=== PATIENT | male | born 1945 | race Caucasian/White ===

== ENCOUNTER 2022-04-21 14:07 | Inpatient (IN) | payer OTHER ==
[~2022-04-21] VITALS: Ht 170.2 cm; Wt 90.3 kg
[2022-04-21 14:13] VITALS: BP 127/62
--- NOTE | 2022-04-21 14:23 | NUR ---
PT W/C ASSISTED TO ER BED 2
--- NOTE | 2022-04-21 14:35 | NUR ---
WHEELCHAIRED IN TO ED C/O LEFT HIP PAIN S/P GROUND LEVEL FALL, LANDING ON HIP. PRESENTS WITH SCRAPE TO LEFT KNEE. DENIES LOC OR TRAUMA TO HEAD. AMBULATORY WITH ASSISTANCE. AAOX4,VITALS STABLE.
[2022-04-21] MEDS ORDERED: KETOROLAC 60 MG/2 ML VIAL IM ONE (14:45)
--- NOTE | 2022-04-21 14:54 | NUR ---
PT WENT FOR XR
[2022-04-21] MEDS ORDERED: MORPHINE SULFATE 4 MG/ML SYR IVP ONE (15:15)
--- NOTE | 2022-04-21 15:18 | NUR ---
PT BACK FROM CT
--- NOTE | 2022-04-21 15:50 | NUR ---
IV ESTABLISHED IN LEFT HAND 20G. BLOOD DRAWN.
[2022-04-21 16:05] LABS: HEMATOCRIT 42.2 % (36-52); HEMOGLOBIN 13.4 g/dL (12.0-18.0); MEAN CORPUSCULAR HEMOGLOBIN 26 pg (27-31); MEAN CORPUSCULAR HGB CONC 32 g/dL (33-37); MEAN CORPUSCULAR VOLUME 81.8 fL (80-94); PLATELET COUNT (AUTO) 209 K/uL (140-450); RED BLOOD CELL COUNT(AUTO) 5.16 MIL/uL (4.20-6.10); RED CELL DISTRIBUTION WIDTH 17.6 % (11.6-13.7)
[2022-04-21 16:15] LABS: ALBUMIN 3.8 g/dL (3.4-5.0); ANION GAP 13.5 (8-16); ASPARTATE AMINOTRANSFERASE 20 U/L (15-37); CARBON DIOXIDE 25.1 mmol/L (21-32); CHLORIDE 103 mmol/L (98-107); CREATININE 0.9 mg/dL (0.6-1.3); GLUCOSE 110 mg/dL (74-106); POTASSIUM 4.6 mmol/L (3.5-5.1); SODIUM SERUM 137 mmol/L (136-145); TOTAL BILIRUBIN 0.9 mg/dL (0.0-1.0); UREA NITROGEN, BLOOD 11 mg/dL (7-18); WHITE BLOOD COUNT (AUTO) 82.6 K/uL (4.8-10.8)
[2022-04-21 16:33] LABS: LYMPHOCYTES % (MANUAL) 88 % (20-46); MONOCYTES % (MANUAL) 1 % (5-12)
--- NOTE | 2022-04-21 17:23 | NUR ---
PER PT, SPOUSE WILL BRING HOME MED LIST. WILL RECONCILE ONCE RECEIVED
[2022-04-21] MEDS ORDERED: ACETAMINOPHEN 325 MG TAB PO PRN (17:40)
[2022-04-21] MEDS ORDERED: POTASSIUM CHLORIDE 10 MEQ TABER PO PRN (17:40)
[2022-04-21] MEDS ORDERED: guaiFENesin DM 200/20 MG-10 ML 10 ML UDC PO PRN (17:40)
[2022-04-21] MEDS ORDERED: ONDANSETRON 4 MG/2 ML VIAL IM/IVP PRN (17:40)
[2022-04-21] MEDS ORDERED: ZOLPIDEM 5 MG TAB PO PRN (17:40)
[2022-04-21] MEDS: NACL 0.9% 1,000 ML IV SCH (17:55)
[2022-04-21 17:56] LABS: MAGNESIUM 2.4 mg/dL (1.8-2.4); PHOSPHORUS 3.3 mg/dL (2.5-4.9)
--- NOTE | 2022-04-21 18:27 | NUR ---
PENDING URINE AT THIS TIME. PT UNABLE TO VOID. PROVIDED WITH URINAL AT BEDSIDE
--- NOTE | 2022-04-21 19:05 | NUR ---
son at bedside. vitals stable
--- NOTE | 2022-04-21 19:40 | NUR ---
PT TRANSPORTED VIA GURNEY FROM ER. PT IS AAOX4 ON RA. PT CAME IN FOR MECHANICAL FALL. PT WAS DX WITH HIP FRACTURE. PT WILL BE NPO MIDNIGHT AND HAVE SURGERY TOMORROW. PT IS NOT ABLE TO AMBULATE. PT HAS LEFT HAND 20 GAUGE WITH NS 60 ML/HR. ABD SOFT AND NON-TENDER. NO HEART MURMURS. CLEAR BILATERAL LUNG MORRIS. PT EDUCATED PROCESS DEVELOPER LIGHT SYSTEM. PLAN OF CARE DISCUSSED. ALL SAFETY MEASURES TAKEN. WILL CONTINUE TO MONITOR THE PT. Addendum: 04/22/22 at 0139 by Jose F Alvarez RN PT CAME IN AT 2139
--- NOTE | 2022-04-21 19:49 | NUR ---
PATIENT UNABLE TO PROVIDE URINE AT THIS TIME. URINAL AT BEDSIDE. BED IN LOWEST POSITION. BED LOW AND LOCKED. FRANCISCO SIDE RAILS UP FOR SAFETY. ALL NEED MET.
--- NOTE | 2022-04-21 21:00 | NUR ---
SON BROUGHT MEDICATION , BUT PATIETNT STATED HE WANTED WITH HIM AT ALL TIMES
--- NOTE | 2022-04-21 21:00 | NUR ---
URINE NOT COLLECTED. RECEIVING NURSE MADE AWARE.
--- NOTE | 2022-04-21 21:15 | NUR ---
Patient will be admitted to care of [facility]. Admited to MED/SURG. Will go to room 112B. Belongings list completed. Report to BRENT
[2022-04-21 21:40] VITALS: BP 117/69
[2022-04-21 22:29] LABS: PROTHROMBIN TIME 11.2 secs (10.8-13.4)
--- NOTE | 2022-04-22 01:39 | NUR ---
PT IS SLEEPING IN BED COMFORTABLY. PT IS NOT IN ANY DISTRESS. BREATHING EVEN AND UNLABORED. CALL LIGHT WITHIN REACH. ALL SAFETY MEASURES TAKEN. WILL CONTINUE TO MONITOR THE PT.
--- NOTE | 2022-04-22 04:12 | NUR ---
PT VITAL SIGNS ARE STABLE. PT DENIES ANY PAIN. PT WAS TOLD ABOUT THE PROCEDURE HE IS HAVING TODAY AT 1000 WITH DOCTOR MADELAINE FOR TROCHANTERIC HIP NAILING. PT IS AWARE AND WILL WAIT TO SEE THE DOCTOR TO ASK QUESTIONS. WILL CONTINUE TO MONITOR THE PT.
[2022-04-22 05:10] LABS: APPEARANCE,URINE CLEAR (CLEAR); BILIRUBIN,URINE NEGATIVE (NEGATIVE); BLOOD, URINE NEGATIVE (NEGATIVE); COLOR,URINE BROWN (YELLOW); LEUKOCYTE ESTERASE ,URINE NEGATIVE (NEGATIVE); NITRITE, URINE NEGATIVE (NEGATIVE); UGLUCOSE NEGATIVE (NEGATIVE)
[2022-04-22 05:43] LABS: BARBITURATE, URINE NEGATIVE ng/ml (NEG <=200); BENZODIAZEPINE, URINE NEGATIVE ng/mL (NEG <=200); CANNABINOID, URINE NEGATIVE ng/mL (NEG <=50); COCAINE, URINE NEGATIVE ng/mL (NEG <=300); OPIATE, URINE POSITIVE ng/mL (NEG <=2000); PHENCYCLIDINE SCREEN,URINE NEGATIVE ng/mL (NEG <=25)
[2022-04-22 06:51] LABS: BASOPHILS # (AUTO) 0.1 K/uL (0.00-0.22); BASOPHILS % (AUTO) 0.1 % (0.0-2.0); EOSINOPHILS # (AUTO) 0.4 K/uL (0-0.4); EOSINOPHILS % (AUTO) 0.5 % (0.0-4.0); HEMATOCRIT 39.7 % (36-52); HEMOGLOBIN 12.5 g/dL (12.0-18.0); LYMPHOCYTES # (AUTO) 62.4 K/uL (2.0-11.5); LYMPHOCYTES % (AUTO) 84.9 % (20.5-51.1); MEAN CORPUSCULAR HEMOGLOBIN 26 pg (27-31); MEAN CORPUSCULAR HGB CONC 31 g/dL (33-37); MEAN CORPUSCULAR VOLUME 83.1 fL (80-94); MONOCYTES # (AUTO) 1.3 K/uL (0.8-1.0); MONOCYTES % (AUTO) 1.8 % (1.7-9.3); NEUTROPHILS # (AUTO) 9.3 K/uL (1.8-7.7); NEUTROPHILS % (AUTO) 12.7 % (42.2-75.2); PLATELET COUNT (AUTO) 171 K/uL (140-450); RED BLOOD CELL COUNT(AUTO) 4.77 MIL/uL (4.20-6.10); RED CELL DISTRIBUTION WIDTH 17.6 % (11.6-13.7)
[2022-04-22 06:59] LABS: CARBON DIOXIDE 25.2 mmol/L (21-32); CHLORIDE 105 mmol/L (98-107); CREATININE 0.9 mg/dL (0.6-1.3); GLUCOSE 100 mg/dL (74-106); POTASSIUM 4.2 mmol/L (3.5-5.1); SODIUM SERUM 138 mmol/L (136-145); UREA NITROGEN, BLOOD 15 mg/dL (7-18)
--- NOTE | 2022-04-22 07:12 | NUR ---
SBAR REPORT RECEIVED FROM BRENT RN, ALL CARES ASSUMED. PT RESTING, BED IN LOW AND LOCKED POSITION. CALL LIGHT WITHIN REACH.
--- NOTE | 2022-04-22 07:27 | NUR ---
ENDORSED PT TO DAY SHIFT RN FOR CONTINUITY OF CARE. PT IS STABLE.
[2022-04-22 08:00] VITALS: BP 131/57
[2022-04-22 08:07] LABS: PROTHROMBIN TIME 11.4 secs (10.8-13.4)
[2022-04-22 08:26] LABS: WHITE BLOOD COUNT (AUTO) 73.5 K/uL (4.8-10.8)
--- NOTE | 2022-04-22 08:26 | NUR ---
PATIENT HAS BEEN SCREENED AND CATEGORIZED MODERATE NUTRITION RISK. PATIENT WILL BE SEEN WITHIN 3-5 DAYS OF ADMISSION. [address]ICK [address]DOMO RD Addendum: 04/22/22 at [address] CORRECTION PATIENT HAS BEEN SCREENED AND CATEGORIZED LOW NUTRITION RISK. PATIENT WILL BE SEEN WITHIN 7 DAYS OF ADMISSION. 04/28/[address]
[2022-04-22] MEDS: amLODIPine 5 MG TAB PO SCH (08:32)
[2022-04-22] MEDS: PANTOPRAZOLE 40 MG TABEC PO SCH (08:33)
[2022-04-22] MEDS: METOPROLOL SUCCINATE 50 MG TABER PO SCH (08:33)
[2022-04-22] MEDS ORDERED: PANTOPRAZOLE 40 MG TABEC PO SCH (09:00)
[2022-04-22] MEDS ORDERED: BUPIVACAINE-MPF 0.25% 30 ML VIAL INJ ONE (09:57)
[2022-04-22] MEDS: NACL 0.9% 1,000 ML IV SCH (10:20)
[2022-04-22] MEDS ORDERED: SEVOFLURANE 250 ML BTL INH ONE (10:37)
[2022-04-22] MEDS ORDERED: ONDANSETRON 4 MG/2 ML VIAL ONE (10:37)
[2022-04-22] MEDS ORDERED: PROPOFOL 200 MG/20 ML VIAL IV ONE (11:18)
[2022-04-22] MEDS ORDERED: ceFAZolin 1,000 MG VIAL ONE ×2 (11:18)
[2022-04-22] MEDS ORDERED: ROCURONIUM 50 MG/5 ML VIAL IV ONE (11:18)
[2022-04-22] MEDS ORDERED: GLYCOPYRROLATE 0.2 MG/ML VIAL ONE ×5 (11:58)
[2022-04-22] MEDS ORDERED: NEOSTIGMINE 1:1000 10 MG/10 ML VIAL ONE (11:58)
[2022-04-22] MEDS ORDERED: METOCLOPRAMIDE 10 MG/2 ML INJ VIAL IVP PRN (12:28)
[2022-04-22] MEDS ORDERED: hydrALAZINE 20 MG/ML VIAL IVP PRN (12:29)
[2022-04-22] MEDS ORDERED: LABETALOL 20 MG/4 ML VIAL IVP PRN (12:29)
[2022-04-22] MEDS: LACTATED RINGERS 1,000 ML IV SCH ×2 (12:30→22:30)
[2022-04-22] MEDS: HYDROmorphone 1 MG/ML AMP IVP PRN ×5 (12:40→19:07)
[2022-04-22] MEDS ORDERED: HYDROmorphone PFS 2 MG/ML SYR ONE ×2 (12:44→13:02)
--- NOTE | 2022-04-22 13:27 | NUR ---
PT BACK FROM OR, LEFT TROCHANTERIC HIP NAILING. 2 INCISIONS ON LEFT HIP WITH CLEAN, DRY AND INTACT DRESSINGS. PT ON 2L NC. PT LAYING ON RIGHT SIDE, AWAKE, ABLE TO ANSWER QUESTIONS. AT BEDSIDE. WILL CONTINUE TO MONITOR.
[2022-04-22 16:00] VITALS: BP 120/58
--- NOTE | 2022-04-22 16:09 | NUR ---
DC PLANNING: THE PATIENT PRESENTED S/P MECHANICAL FALL, DX OF ACUTE DISPLACED INTERTROCHANTERIC FX OF LEFT PROXIMAL FEMUR. PATIENT TAKEN TO OR THIS MORNING FOR AN ORIF WITH NAIL. THE PATIENT AND HIS ARE VISITING THEIR SON, WHO LIVES IN [place], FROM [place]. 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 CM WILL REVIEW P.T. NOTES TO ASSIST WITH POST DC NEEDS FOR PHYSICAL THERAPY AND CARE AND WILL ASSIST THE FAMILY WITH FINDING SERVICES OR PLACEMENT NEEDED. CM WILL FOLLOW. Addendum: 04/23/22 at 1132 by Chapis Mchugh CM DC PLANNING: CM SPOKE WITH THE PATIENT AND HIS DAUGHTER IN [place] AT BEDSIDE TO DISCUSS POST DC PLANS. STILL NO CONFIRMATION ON OP SERVICES COVERAGE BY HIS TRAVELLERS INSURANCE, WAITING FOR P.T. EVALUATION. TENTATIVE DC PLAN IS NO COVERAGE FOR SNF WILL BE FOR THE PATIENT TO GO TO HIS SONS HOME WITH HOME HEALTH, CM WILL LOOK FOR RESOURCES THIS WILL BE OUT OF POCKET FOR THE FAMILY. CM WILL FOLLOW. Addendum: 04/26/22 at 1310 by Chapis Mchugh CM DC PLANNING: MATHEW IS SPEAKING WITH THE PATIENT AND FAMILY REGARDING DC PLANNING. FWW PROVIDED TO PATIENT, HIS DAUGHTER IN [place] IS ARRANGING A HOSPITAL BED AND ELEVATED TOILET SEAT. REFERRAL FOR HOME P.T. SENT TO [facility] P.[facility]. [phone]), THEY ARE ABLE TO START TUESDAY OR TUESDAY AT THE LATEST IF PATIENT DC'S TOMORROW. TRANSPORT BY [facility] IS BEING ARRANGE WITH [facility] ([phone]), FAMILY WILL PAY OUT OF POCKET. PATIENTS BED WILL BE DELIVERED TO HIS SONS HOME TOMORROW AT 1530, [facility] CAN TRANSPORT BETWEEN [phone]. MATHEW ENDORSED ABOVE TO THE PATIENT, HIS AND HIS DAUGHTER IN [place] AT BEDSIDE. MATHEW WILL FOLLOW. Addendum: 04/27/22 at 1118 by Chapis Mchugh CM DC PLANNING: MATHEW SPOKE WITH THE PATIENTS DAUGHTER IN [place] BY PHONE. NUMBER FOR [facility]SPORT ([phone]) GIVEN TO HER SO THAT PAYMENT CAN BE MADE FOR TODAYS TRANSPORT. FREDERICKGonzalo ALSO ASKED THAT THE PHARMACY FOR THE PATIENT BE CHANGED, MATHEW ENDORSED THIS TO THE PATIENTS NURSE ANYA. MATHEW ALSO SPOKE WITH JENS AT [facility] HE HAS SPOKEN WITH CHRISTI AND SET UP HIS VISIT WITH PATIENT FOR THERAPY. TRANSPORT TIME OF [phone] CONFIRMED WITH PACO AT [facility]. CM WILL FOLLOW. Addendum: 04/27/22 at 1322 by Chapis Mchugh CM DC PLANNING: PATIENTS SENIOR INSTRUCTIONAL DESIGNER TIME CHANGED TO 1600 BY [facility], FAMILY IN AGREEMENT, NURSING UPDATED. CM WILL FOLLOW.
--- NOTE | 2022-04-22 19:30 | NUR ---
SBAR REPORT GIVEN TO BRENT RN, ALL CARES ENDORSED.
--- NOTE | 2022-04-22 19:35 | NUR ---
RECEIVED BEDSIDE REPORT FROM DAY SHIFT RN FOR CONTINUITY OF CARE. PT IS AWAKE AND ALERT DAUGHTER IS BY BEDSIDE. PT IS NOT IN ANY RESPIRATORY DISTRESS. PT IS ON LR RUNNING 100 ML/HR. PT IS S/P LEFT TROCHANTERIC HIP NAILING. 2 INCISION SITES. PT JUST GOT DILAUDID FROM MORNING SHIFT NURSE AND IS TOLERATING PAIN WELL. PLAN OF CARE DISCUSSED. ALL QUESTIONS ANSWERED. WILL CONTINUE TO MONITOR THE PT.
[2022-04-22] MEDS: SIMVASTATIN 20 MG TAB PO SCH (21:14)
--- NOTE | 2022-04-22 21:25 | NUR ---
ALL DUE MEDS GIVEN. NO ADVERSE REACTION NOTED. PT SAYS HIS PAIN LEVEL IS OKAY AND DOES NOT WANT ANY PAIN MEDICATION. MESSAGED DR. GREGORY ABOUT PT DIET SINCE HE WAS STILL NPO EXCEPT MEDS. DOCTOR SAID TO PUT PT ON REGULAR DIET. PT DOES NOT WANT ANY WATER OR FOODS. EDUCATED PT TO CALL IF HE NEEDS ANY PAIN MEDICATION SINCE HE JUST HAD SURGERY TODAY. ALSO, TO CALL FOR ANY OTHER NEEDS.
[2022-04-22] MEDS: MORPHINE SULFATE 2 MG/ML SYR IVP PRN (22:39)
--- NOTE | 2022-04-22 23:00 | NUR ---
GAVE MORPHINE TO PATIENT FOR 10/10 PAIN IN LEFT HIP AT 2239. PATIENT ALSO REQUESTED TO BE MOVED IN BED, BUT WAS STILL IN TOO MUCH PAIN TO MOVE. PATIENT WAS ABLE TO TOLERATE MOVE 10 MINUTES LATER, BUT INDICATING THAT HE WAS STILL IN PAIN. PATIENT WAS MOVED UP IN BED AND MORE CENTERED. PATIENT WAS THANKFUL FOR THE MOVE. BED WAS IN LOWEST POSITION, CALL LIGHT WAS IN REACH. PATIENT BREATHING WAS NORMAL WITH SYMMETRICAL RISE AND FALL OF CHEST. WILL LOOK IN ON PATIENT IN ONE HOUR TO RE-EVALUATE PAIN.
[2022-04-23] MEDS: HYDROcodone/APAP 7.5/325 MG 1 TAB PO PRN ×2 (00:11→10:01)
--- NOTE | 2022-04-23 00:15 | NUR ---
PATIENT STATING PAIN 10/10. GAVE NORCO. PATIENT TOLERATED WELL. PATIENT WAS LYING WITH HEAD OF BED AT 30 DEGREES. BED WAS IN LOWEST POSITION. PATIENT WAS APPRECIATIVE AND STATED THAT HE WAS GOING TO TRY AND FALL ASLEEP. WILL CONTINUE TO LOOK IN ON PATIENT.
[2022-04-23] MEDS: NACL 0.9% 1,000 ML IV SCH (01:28)
--- NOTE | 2022-04-23 01:45 | NUR ---
LOOKED IN ON PATIENT. PATIENT WAS SLEEPING. BED WAS IN LOWEST POSITION WITH WHEELS LOCKED. BAG OF NORMAL SALINE WAS HUNG RUNNING AT 60ML/HR. IV SITE WAS PATENT AND INTACT. WILL CONTINUE TO OBSERVE PATIENT.
--- NOTE | 2022-04-23 03:08 | NUR ---
PT CALLED TO HELP EMPTY HIS URINAL. IVF RUNNING PER MD ORDER WITH NS AT 60 CC/HR. PT HAS NO OTHER COMPLAINS. WILL CONTINUE TO MONITOR THE PT.
[2022-04-23 04:00] VITALS: BP 117/51
[2022-04-23] MEDS: MORPHINE SULFATE 2 MG/ML SYR IVP PRN ×2 (04:56→11:11)
--- NOTE | 2022-04-23 05:05 | NUR ---
PATIENT'S VITALS WERE TAKEN. VITALS WERE: BP 117/51, HR 77, O2 98, RR 18, TEMP 96.7. IVPB WAS HUNG. PATIENT INDICATED 10/10 PAIN AND WAS MEDICATED WITH MORPHINE IVP. PATIENT WAS LYING SUPINE WITH HEAD AT 30 DEGREE LEVEL. PATIENT'S BED WAS IN LOWEST POSITION WITH WHEELS LOCKED. WILL CONTINUE TO LOOK IN ON PATIENT AND WILL REEVALUATE PAIN IN ONE HOUR.
--- NOTE | 2022-04-23 06:05 | NUR ---
PATIENT'S PAIN LEVEL WAS REASSESSED. PATIENT WAS SLEEPING. WILL CONTINUE TO LOOK IN ON PATIENT.
[2022-04-23 07:00] LABS: BASOPHILS # (AUTO) 0.1 K/uL (0.00-0.22); BASOPHILS % (AUTO) 0.2 % (0.0-2.0); EOSINOPHILS # (AUTO) 0.7 K/uL (0-0.4); EOSINOPHILS % (AUTO) 1.1 % (0.0-4.0); HEMATOCRIT 34.1 % (36-52); HEMOGLOBIN 10.8 g/dL (12.0-18.0); LYMPHOCYTES # (AUTO) 56.1 K/uL (2.0-11.5); LYMPHOCYTES % (AUTO) 83.3 % (20.5-51.1); MEAN CORPUSCULAR HEMOGLOBIN 26 pg (27-31); MEAN CORPUSCULAR HGB CONC 32 g/dL (33-37); MEAN CORPUSCULAR VOLUME 82.3 fL (80-94); MONOCYTES # (AUTO) 1.1 K/uL (0.8-1.0); MONOCYTES % (AUTO) 1.7 % (1.7-9.3); NEUTROPHILS # (AUTO) 9.2 K/uL (1.8-7.7); NEUTROPHILS % (AUTO) 13.7 % (42.2-75.2); PLATELET COUNT (AUTO) 156 K/uL (140-450); RED BLOOD CELL COUNT(AUTO) 4.15 MIL/uL (4.20-6.10); RED CELL DISTRIBUTION WIDTH 17.5 % (11.6-13.7)
[2022-04-23 07:07] LABS: WHITE BLOOD COUNT (AUTO) 67.3 K/uL (4.8-10.8)
--- NOTE | 2022-04-23 07:28 | NUR ---
RECEIVED REPORT FROM WALLPAPERER HELPER NURSE FOR CONTINUITY OF CARE. PT ASLEEP IN BED. BREATHING SYMMETRICAL ON O2 2L VIA NC. DRY DRESSING ON LEFT HIP, S/P LEFT HIP ORIF YESTERDAY. LEFT HAND 20G WITH NS AT 60CC/HR. FLACC O. CALL LIGHT WITHIN REACH. ALL SAFETY MEASURES IN PLACE.
[2022-04-23 07:29] LABS: ANION GAP 11.1 (8-16); CHLORIDE 105 mmol/L (98-107); CREATININE 0.8 mg/dL (0.6-1.3); GLUCOSE 99 mg/dL (74-106); POTASSIUM 4.1 mmol/L (3.5-5.1); SODIUM SERUM 138 mmol/L (136-145); UREA NITROGEN, BLOOD 10 mg/dL (7-18)
--- NOTE | 2022-04-23 07:34 | NUR ---
ENDORSED PATIENT FOR CONTINUITY OF CARE TO MORNING NURSE LAUREN. PATIENT IS STABLE.
--- NOTE | 2022-04-23 08:40 | NUR ---
SEEN BY DR HUTCHINSON. AT BEDSIDE
[2022-04-23] MEDS ORDERED: CRUSHER, PILL MC ONE (08:58)
[2022-04-23] MEDS: PANTOPRAZOLE 40 MG TABEC PO SCH (09:13)
[2022-04-23] MEDS: METOPROLOL SUCCINATE 50 MG TABER PO SCH (09:13)
[2022-04-23] MEDS: amLODIPine 5 MG TAB PO SCH (09:14)
--- NOTE | 2022-04-23 09:24 | NUR ---
SCHEDULED AM MEDICATIONS GIVEN ORDERED. AT BEDSIDE.
--- NOTE | 2022-04-23 10:31 | NUR ---
PT ON 2 IVFs, NS AND LR. DR HUTCHINSON MADE AWARE WITH ORDER TO D/C NS
[2022-04-23] MEDS: LACTATED RINGERS 1,000 ML IV SCH (10:39)
--- NOTE | 2022-04-23 14:27 | NUR ---
PT AWAKE IN BED. BREATHING SYMMETRICAL ON ROOM AIR. NO C/O PAIN AT THIS TIME
--- NOTE | 2022-04-23 14:55 | NUR ---
SPOKE WITH FRANKLIN PT AND SAID SHE'LL BE HERE IN 40MINS. AT BEDSIDE, AND PT AWARE.
[2022-04-23 16:00] VITALS: BP 109/51
--- NOTE | 2022-04-23 16:10 | NUR ---
PT SEEN AND EVALUATED BY PT. AT BEDSIDE
--- NOTE | 2022-04-23 17:00 | NUR ---
PT VERBALIZING HE WON'T EAT ANYTHING SOLID, PER PT HE DOESN'T WANT TO EAT SO THAT HE WON'T NEED TO WALK TO THE RESTROOM BECAUSE IT'S HARD FOR HIM TO DO THAT. AT BEDSIDE. EXPLAINED TO PT IMPORTANCE OF FOOD AND NUTRIENTS IN THE BODY. PROVIDED PT WITH BEDSIDE COMMODE AND ASSURED PT THAT NURSE WILL ASSIST WITH.
--- NOTE | 2022-04-23 17:54 | NUR ---
P.T. NOTES P.T. EVAL COMPLETED; REFER TO EVAL FOR DETAILS.
--- NOTE | 2022-04-23 19:28 | NUR ---
ENDORSED PT TO ORACLE DATA WAREHOUSE DEVELOPER NURSE FOR CONTINUITY OF CARE.
--- NOTE | 2022-04-23 19:45 | NUR ---
GET THE REPORT FROM MORNING NURSE , PATIENT IS LYING ON BED,PATIENT IS ALERT ORIENTED X4 ,CALL LIGHT IS WITHIN THE REACH, WILL CONTINUE TO MONITOR PATIENT.
[2022-04-23 20:00] VITALS: BP 132/59
[2022-04-23] MEDS: SIMVASTATIN 20 MG TAB PO SCH (20:55)
--- NOTE | 2022-04-23 21:05 | NUR ---
PATIENT IS LYING ON BED, NO ANY COMPLAIN OF PAIN OR SHORTNESS OF BREATH AT THIS TIME, VITAL SIGN IS WITHIN THE NORMAL RANGE, ALL SCHEDULE MEDICATION IS GIVEN PER DOCTOR ORDER, CALL LIGHT IS WITHIN THE REACH, WILL CONTINUE TO MONITOR PATIENT.
--- NOTE | 2022-04-24 00:17 | NUR ---
PATIENT IS LYING ON BED, NO ANY COMPLAIN OF PAIN AT THIS TIME, CALL LIGHT IS WITHIN THE REACH, WILL CONTINUE TO MONITOR PATIENT.
[2022-04-24 04:00] VITALS: BP 140/60
--- NOTE | 2022-04-24 04:32 | NUR ---
VITAL SIGN IS WITHIN THE NORMAL RANGE, CALL LIGHT IS WITHIN THE REACH, WILL CONTINUE TO MONITOR PATIENT.
--- NOTE | 2022-04-24 07:01 | NUR ---
GAVE THE REPORT TO MORNING NURSE LAUREN SEAN FOR CONTINUOS OF CARE, PATIENT IS STABLE.
--- NOTE | 2022-04-24 07:03 | NUR ---
RECEIVED REPORT FROM DATA ENTRY OPERATOR NURSE FOR CONTINUITY OF CARE. PT ASLEEP IN BED. BREATHING SYMMETRICAL ON ROOM AIR. LEFT HAND 20G, ON SALINE LOCK AT THIS TIME. FLACC O. CALL LIGHT WITHIN REACH. ALL SAFETY MEASURES IN PLACE.
[2022-04-24 07:15] LABS: ANION GAP 11.3 (8-16); CHLORIDE 100 mmol/L (98-107); CREATININE 0.7 mg/dL (0.6-1.3); GLUCOSE 99 mg/dL (74-106); POTASSIUM 4.3 mmol/L (3.5-5.1); SODIUM SERUM 133 mmol/L (136-145); UREA NITROGEN, BLOOD 5 mg/dL (7-18)
[2022-04-24 07:34] LABS: HEMOGLOBIN 10.5 g/dL (12.0-18.0); MEAN CORPUSCULAR HEMOGLOBIN 26 pg (27-31); MEAN CORPUSCULAR HGB CONC 32 g/dL (33-37); MEAN CORPUSCULAR VOLUME 81.9 fL (80-94); PLATELET COUNT (AUTO) 165 K/uL (140-450); RED BLOOD CELL COUNT(AUTO) 4.02 MIL/uL (4.20-6.10); RED CELL DISTRIBUTION WIDTH 17.6 % (11.6-13.7)
[2022-04-24 08:15] LABS: WHITE BLOOD COUNT (AUTO) 72.3 K/uL (4.8-10.8)
[2022-04-24 08:54] LABS: LYMPHOCYTES % (MANUAL) 85 % (20-46); MONOCYTES % (MANUAL) 3 % (5-12)
[2022-04-24] MEDS: amLODIPine 5 MG TAB PO SCH (09:38)
[2022-04-24] MEDS: PANTOPRAZOLE 40 MG TABEC PO SCH (09:39)
[2022-04-24] MEDS: METOPROLOL SUCCINATE 50 MG TABER PO SCH (09:40)
--- NOTE | 2022-04-24 09:44 | NUR ---
SCHEDULED AM MEDICATIONS GIVEN ORDERED. DAUGHTER AT BEDSIDE.
[2022-04-24] MEDS: DOCUSATE SODIUM 100 MG GELCAP PO PRN (09:46)
--- NOTE | 2022-04-24 10:28 | NUR ---
CLARIFIED WITH DR HUTCHINSON REGARDING PT'S IVF, PT'S BEEN DRINKING FLUIDS. PER OK TO KEEP ON SALINE LOCK.
--- NOTE | 2022-04-24 10:36 | NUR ---
PT SEEN BY DR HUTCHINSON
--- NOTE | 2022-04-24 11:26 | NUR ---
PT AWAKE IN BED. BREATHING SYMMETRICAL. NO C/O PAIN AT THIS TIME.
[2022-04-24] MEDS: HYDROcodone/APAP 7.5/325 MG 1 TAB PO PRN (12:07)
--- NOTE | 2022-04-24 13:30 | NUR ---
PT SEEN BY PT. AT BEDSIDE. CALL LIGHT WITHIN REACH. ENCOURAGED TO ALWAYS CALL FOR ASSISTANCE
[2022-04-24 16:00] VITALS: BP 122/64
--- NOTE | 2022-04-24 18:02 | NUR ---
ASSISTED PT TO THE BEDSIDE COMMODE WITH SENIOR SOFTWARE ANALYST. PT ONLY URINATED, NO BM NOTED. ASSISTED PT TO THE CHAIR AFTERWARDS FOR DINNER REQUESTED. CALL LIGHT WITHIN REACH. ENCOURAGED TO ALWAYS CALL FOR ASSISTANCE
--- NOTE | 2022-04-24 19:15 | NUR ---
ENDORSED PT TO MACARONI MAKER NURSE FOR CONTINUITY OF CARE.
[2022-04-24] MEDS: MORPHINE SULFATE 2 MG/ML SYR IVP PRN (19:18)
--- NOTE | 2022-04-24 19:53 | NUR ---
GET THE REPORT FROM MORNING NURSE LAUREN ESTRADA, PATIENT IS LYING ON BED, PATIENT IS ALERT ORIENTED X4, CALL LIGHT IS WITHIN THE REACH, WILL CONTINUE TO MONITOR PATIENT.
[2022-04-24 20:00] VITALS: BP 129/58
[2022-04-24] MEDS: SIMVASTATIN 20 MG TAB PO SCH (21:31)
--- NOTE | 2022-04-24 21:38 | NUR ---
PATIENT IS LYING ON BED,VITAL SIGN IS WITHIN THE NORMAL RANGE, NO ANY COMPLAIN OF PAIN OR SHORTNESS OF BREATH AT THIS TIME, ALL SCHEDULE MEDICATION IS GIVEN PER DOCTOR ORDER, CALL LIGHT IS WITHIN THE REACH, WILL CONTINUE TO MONITOR PATIENT.
--- NOTE | 2022-04-25 00:22 | NUR ---
PATIENT IS LYING ON BED, NO ANY COMPLAIN OF PAIN OR SHORTNESS OF BREATH AT THIS TIME.CALL LIGHT IS WITHIN THE REACH, WILL CONTINUE TO MONITOR PATIENT.
--- NOTE | 2022-04-25 02:30 | NUR ---
CHECKED PATIENT AND HIS LYING ON BED, VITAL SIGN IS WITHIN THE NORMAL RANGE, PATIENT WANTS BLANKET , PROVIDED ,CALL LIGHT IS WITHIN THE REACH, WILL CONTINUE TO MONITOR PATIENT.
[2022-04-25 04:00] VITALS: BP 139/60
--- NOTE | 2022-04-25 07:31 | NUR ---
GAVE THE REPORT TO MORNING NURSE FOR CONTINUOS OF CARE , PATIENT IS STABLE.
[2022-04-25 07:55] LABS: HEMATOCRIT 33.9 % (36-52); HEMOGLOBIN 10.7 g/dL (12.0-18.0); MEAN CORPUSCULAR HEMOGLOBIN 26 pg (27-31); MEAN CORPUSCULAR HGB CONC 31 g/dL (33-37); MEAN CORPUSCULAR VOLUME 82.9 fL (80-94); PLATELET COUNT (AUTO) 180 K/uL (140-450); RED CELL DISTRIBUTION WIDTH 17.9 % (11.6-13.7)
[2022-04-25 08:00] VITALS: BP 120/66
--- NOTE | 2022-04-25 08:00 | NUR ---
RECEIVE ENDORSEMENT FROM PM SHIFT NURSE THAT PATIENT REST IN BED, JAILENE L.HAND 20G SALINE LOCK. WILL CONTINUE TO MONITOR
[2022-04-25 08:08] LABS: ANION GAP 12.9 (8-16); CARBON DIOXIDE 27.4 mmol/L (21-32); CHLORIDE 102 mmol/L (98-107); CREATININE 0.7 mg/dL (0.6-1.3); GLUCOSE 110 mg/dL (74-106); POTASSIUM 4.3 mmol/L (3.5-5.1); SODIUM SERUM 138 mmol/L (136-145); UREA NITROGEN, BLOOD 9 mg/dL (7-18)
[2022-04-25 08:13] LABS: WHITE BLOOD COUNT (AUTO) 81.9 K/uL (4.8-10.8)
[2022-04-25 08:45] LABS: BASOPHILS % (MANUAL) 0 % (0-2); EOSINOPHILS % (MANUAL) 0 % (0-4); LYMPHOCYTES % (MANUAL) 78 % (20-46); MONOCYTES % (MANUAL) 3 % (5-12)
[2022-04-25] MEDS: PANTOPRAZOLE 40 MG TABEC PO SCH (10:37)
[2022-04-25] MEDS: METOPROLOL SUCCINATE 50 MG TABER PO SCH (10:39)
[2022-04-25] MEDS: amLODIPine 5 MG TAB PO SCH (10:44)
[2022-04-25] MEDS: MORPHINE SULFATE 2 MG/ML SYR IVP PRN ×2 (12:52→22:15)
[2022-04-25 16:00] VITALS: BP 139/60
--- NOTE | 2022-04-25 19:36 | NUR ---
ENDORSE PT TO PM SHIFT NURSE WHILE PATIENT REST IN BED, STABLE, PIV L.HAND 20G SALINE LOCK
--- NOTE | 2022-04-25 19:37 | NUR ---
RECEIVED PATIENT IN BED AWAKE WITH FAMILY AT BEDSIDE. PATIENT WAS ALERT AND ORIENTED X 4. PATIENT ABLE TO VERBALIZE NEEDS AND WANT. PATIENT WAS REMINDED TO NOT GET OUT OF THE BED UNLESS INSTRUCTED TO DO SO BY ORDERS FROM MD, NURSE ASSISTANCE, OR PT. PATIENT UNDERSTOOD AND AGREED. PATIENT WAS ABLE TO ANSWER QUESTIONS ABOUT HIS HEALTH APPROPRIATELY. PATIENT WAS SITTING UP IN THE BED WITH HOB ELEVATED TO VISIT WITH FAMILY AT BED SIDE. CALL LIGHT WAS WITH REACH FOR ASSISTANCE AND NEEDS. PATIENT HAD TWO SIDE RAILS UP FOR SAFETY AND ADJUSTMENT FOR COMFORT. SURGICAL DRESSING TO LEFT LEG WAS CLEAN AND INTACT. [id number]
[2022-04-25] MEDS: SIMVASTATIN 20 MG TAB PO SCH (21:32)
--- NOTE | 2022-04-25 21:42 | NUR ---
PATIENT WAS GIVEN EVENING MEDICATION AND TOLERATED IT WELL. PATIENT INFORMED NURSE THAT HE WAS IN 8/10 PAIN, COVERING RN WAS INFORMED TO GIVE PAIN MEDICATION. NURSING WILL FREQUENT HIS ROOM TO MONITOR FOR EFFECTIVENESS OF THE MEDICATION. [id number]
[2022-04-26 04:00] VITALS: BP 140/64
--- NOTE | 2022-04-26 05:16 | NUR ---
DURING ROUNDS, PATIENT NOTED IN BED ASLEEP. CHEST RISING AND FALLING WITHOUT INCIDENT. NO NOTED S/S OF PAIN/DISCOMFORT. PATIENT REMAINED CLEAN AND DRY. BED AT THE LOWEST LEVEL SIDERAILS UP X 2 FOR COMFORT AND SAFETY. NURSING WILL CONTINUE TO MONITOR FOR ANTICIPATED NEEDS. CALL LIGHT WITHIN REACH. [email or web address]
[2022-04-26 07:10] LABS: BASOPHILS # (AUTO) 0.1 K/uL (0.00-0.22); BASOPHILS % (AUTO) 0.1 % (0.0-2.0); EOSINOPHILS # (AUTO) 0.5 K/uL (0-0.4); EOSINOPHILS % (AUTO) 0.6 % (0.0-4.0); HEMATOCRIT 32.4 % (36-52); HEMOGLOBIN 10.3 g/dL (12.0-18.0); LYMPHOCYTES # (AUTO) 72.6 K/uL (2.0-11.5); LYMPHOCYTES % (AUTO) 86.4 % (20.5-51.1); MEAN CORPUSCULAR HEMOGLOBIN 26 pg (27-31); MEAN CORPUSCULAR HGB CONC 32 g/dL (33-37); MEAN CORPUSCULAR VOLUME 82.6 fL (80-94); MONOCYTES # (AUTO) 2.4 K/uL (0.8-1.0); MONOCYTES % (AUTO) 2.9 % (1.7-9.3); NEUTROPHILS # (AUTO) 8.4 K/uL (1.8-7.7); PLATELET COUNT (AUTO) 204 K/uL (140-450); RED BLOOD CELL COUNT(AUTO) 3.92 MIL/uL (4.20-6.10); RED CELL DISTRIBUTION WIDTH 17.7 % (11.6-13.7)
[2022-04-26 07:15] LABS: ANION GAP 10.4 (8-16); CARBON DIOXIDE 27.7 mmol/L (21-32); CHLORIDE 103 mmol/L (98-107); CREATININE 0.7 mg/dL (0.6-1.3); GLUCOSE 106 mg/dL (74-106); POTASSIUM 4.1 mmol/L (3.5-5.1); SODIUM SERUM 137 mmol/L (136-145); UREA NITROGEN, BLOOD 14 mg/dL (7-18)
--- NOTE | 2022-04-26 07:20 | NUR ---
ENDORSED PATIENT TO ALAINA RN, PATIENT WAS STABLE AT THE CHANGE OF SHIFT. [id number]
[2022-04-26 08:00] VITALS: BP 132/62
--- NOTE | 2022-04-26 08:23 | NUR ---
RECEIVE ENDORSEMENT FROM PM SHIFT NURSE THAT PATIENT REST IN BED, PIV L.HAND 20G SALINE LOCK. WBC 84 WHICH IS TYPIC FOR CHRONIC LYMPHATIC LEUKEMIA. WILL CONTINUE TO MONITOR
[2022-04-26] MEDS: amLODIPine 5 MG TAB PO SCH (09:10)
[2022-04-26] MEDS: PANTOPRAZOLE 40 MG TABEC PO SCH (09:10)
[2022-04-26] MEDS: METOPROLOL SUCCINATE 50 MG TABER PO SCH (09:13)
[2022-04-26] MEDS: DOCUSATE SODIUM 100 MG GELCAP PO PRN (16:15)
[2022-04-26] MEDS: MORPHINE SULFATE 2 MG/ML SYR IVP PRN ×3 (16:16→20:37)
[2022-04-26] MEDS ORDERED: Z-GUARD PASTE TP ONE (18:05)
--- NOTE | 2022-04-26 19:41 | NUR ---
ENDORSE PT TO PM SHIFT NURSE WHILE PATIENT REST IN BED, STABLE, PIV L.HAND 20G SALINE LOCK PATENT
[2022-04-26] MEDS: SIMVASTATIN 20 MG TAB PO SCH (20:32)
[2022-04-26 21:26] VITALS: BP 144/74
[2022-04-27 03:53] VITALS: BP 140/65
[2022-04-27 04:33] VITALS: BP 145/72
--- NOTE | 2022-04-27 06:54 | NUR ---
PATIENT STABLE THIS SHIFT, ENDORSED CARE TO ONCOMING SHIFT
[2022-04-27 07:18] LABS: ANION GAP 10.7 (8-16); CARBON DIOXIDE 27.2 mmol/L (21-32); CHLORIDE 101 mmol/L (98-107); CREATININE 0.6 mg/dL (0.6-1.3); GLUCOSE 101 mg/dL (74-106); POTASSIUM 3.9 mmol/L (3.5-5.1); SODIUM SERUM 135 mmol/L (136-145); UREA NITROGEN, BLOOD 14 mg/dL (7-18)
[2022-04-27 07:23] LABS: HEMATOCRIT 33.2 % (36-52); HEMOGLOBIN 10.6 g/dL (12.0-18.0); MEAN CORPUSCULAR HEMOGLOBIN 26 pg (27-31); MEAN CORPUSCULAR HGB CONC 32 g/dL (33-37); MEAN CORPUSCULAR VOLUME 82.2 fL (80-94); PLATELET COUNT (AUTO) 225 K/uL (140-450); RED BLOOD CELL COUNT(AUTO) 4.05 MIL/uL (4.20-6.10); RED CELL DISTRIBUTION WIDTH 17.7 % (11.6-13.7)
[2022-04-27 07:59] LABS: WHITE BLOOD COUNT (AUTO) 97.3 K/uL (4.8-10.8)
[2022-04-27 08:00] VITALS: BP 140/74
--- NOTE | 2022-04-27 08:18 | NUR ---
RECEIVE ENDORSEMENT FROM PM SHIFT NURSE THAT PATIENT REST IN BED, PIV L.HAND 20G SALINE LOCK. WBC 97.3 WHICH IS TYPIC FOR CHRONIC LYMPHATIC LEUKEMIA. WILL CONTINUE TO MONITOR
[2022-04-27] MEDS: MORPHINE SULFATE 2 MG/ML SYR IVP PRN (08:33)
[2022-04-27] MEDS: amLODIPine 5 MG TAB PO SCH (08:37)
[2022-04-27] MEDS: PANTOPRAZOLE 40 MG TABEC PO SCH (08:37)
[2022-04-27] MEDS: METOPROLOL SUCCINATE 50 MG TABER PO SCH (08:41)
[2022-04-27] MEDS ORDERED: AMLO10TA89 PO (12:09)
[2022-04-27] MEDS ORDERED: METO25TA PO (12:11)
[2022-04-27] MEDS ORDERED: SIMV20TA1 PO (12:11)
[2022-04-27] MEDS ORDERED: ACET-8386 PO (12:11)
[2022-04-27] MEDS ORDERED: ASPI-1205 PO (12:11)
--- NOTE | 2022-04-27 12:14 | NUR ---
PHYSICAL THERAPY CO-SIGN The Physical Therapy Progress Notes documented by Blue Leather Sorter have been reviewed. Reviewed/Co-Signed by: Wendi Wu Documentation Done by: AUGUSTINE PANDA PTA Addendum: 04/27/22 at 1215 by Wendi Wu PT Amended: Links added.
[2022-04-27 14:34] VITALS: BP 140/74
[2022-04-27 14:50] LABS: LYMPHOCYTES % (MANUAL) 87 % (20-46); MONOCYTES % (MANUAL) 1 % (5-12)
--- NOTE | 2022-04-27 15:19 | NUR ---
DISCHARGE PATIENT PER PCP ORDER, CONSENT SIGNED, IV ACCESS & ARM BAND REMOVED, AT BEDSIDE. PATIENT DID ARYAN HAVE BM SINCE SURGERY, WARM PRUNE JUICE GIVEN
--- NOTE | 2022-04-27 16:04 | NUR ---
PATIENT'S RIDE IS HERE, AND PATIENT WALK OUT THE ROOM STABLE, USING CANE SUPPORTING WALKING.
== END 2022-04-27 16:00 | disposition home or self-care (01) | DRG 482 ==
LOC: MED 14:07 → MMU 17:42 → MTU 20:43
PROVIDERS: ADMIT Student in an Organized Health Care Education/Training Program; ATTEND Student in an Organized Health Care Education/Training Program
PROC: 0QS704Z Reposition Left Upper Femur with Internal Fixation Device, Open Approach (ICD-10-PCS; principal; 2022-04-22 10:00)
DX: S72.142A Displaced intertrochanteric fracture of left femur, initial encounter for closed fracture (principal); N40.0 Benign prostatic hyperplasia without lower urinary tract symptoms; K21.9 Gastro-esophageal reflux disease without esophagitis; W18.39XA Other fall on same level, initial encounter; Z20.822 Contact with and (suspected) exposure to COVID-19; Y93.89 Activity, other specified; Y92.89 Other specified places as the place of occurrence of the external cause; Y99.8 Other external cause status; Z85.6 Personal history of leukemia
CPT/HCPCS: 36415; 71045; 73502; 73560; 80048; 80053; 80305; 81003; 83735; 83880; 84100; 84484; 85025; 85610; 85730; 86870; 86886; 86900; 86901; 87081; 93005; 96372; 96374; 97110; 97112; 97116; 97163-GP; 97530; 99285; C1713; C1769; J0690; J1170; J1644; J1885; J2270; J2405; J2704; J2710; J3490; J7060; J7120